=== PATIENT | male | born 1965 | race Caucasian/White ===

== ENCOUNTER 2017-08-05 09:22 | Emergency (ER) | payer OTHER ==
[2017-08-05 09:53] LABS: #Eosinphils 0.1 thou/uL (0.0-0.7); #Lymphocytes 1.1 thou/uL (1.20-3.40); #Monocytes 0.4 thou/uL (0.11-0.59); #Neutrophils 2.9 thou/uL (1.40-6.50); %Basophils 0.5 % (0.0-1.0); %Eosinophils 1.9 % (0.0-10.0); %Lymphocytes 25.2 % (21.0-51.0); %Monocytes 8.1 % (0.0-10.0); Hematocrit 41.5 % (42.0-52.0); Mean Platelet Volume 5.7 fL (7.4-10.4); Red Blood Cell (RBC) Count 4.53 mill/uL (4.70-6.10); White Blood Cell (WBC) Count 4.5 thou/uL (4.8-10.8)
[2017-08-05 10:20] LABS: ALT (SGPT) 14 U/L (8-55); AST (SGOT) 40 U/L (5-34); Alkaline Phosphatase 85 U/L (40-150); Anion Gap 16 mmol/L (10-20); BUN (Urea Nitrogen) 12 mg/dL (8.4-25.7); Bilirubin, Total 0.4 mg/dL (0.2-1.2); Calc. Creatinine Clearance 0 mL/min (70-130); Calcium 9.1 mg/dL (7.8-10.44); Carbon Dioxide 23 mmol/L (22-29); Chloride 105 mmol/L (98-107); Estimated GFR-MDRD Greater than 90; Globulin 2.3 g/dL (2.4-3.5); Protein, Total 6.6 g/dL (6.0-8.3)
[2017-08-05] MEDS ORDERED: SODIUM CHLORIDE 0.9% IVPB ONE (11:00)
[2017-08-05] MEDS ORDERED: FOSPHENYTOIN SODIUM IVPB ONE (11:00)
--- NOTE | 2017-08-05 11:38 | CT ---
HEAD CT WITHOUT CONTRAST: DATE: 08/05/17. COMPARISON: None. HISTORY: A 51-year-old male with seizures. TECHNIQUE: Serial axial CT imaging is obtained at 5 mm intervals from vertex through the skull base without cont rast. FINDINGS: Imaged paranasal sinuses and mastoid air cells are well aerated. There is no displaced calvarial fra cture. There is no intracranial hemorrhage, midline shift, mass effect, or ventricular enlargement. IMPRESSION: No intracranial hemorrhage or displaced calvarial fracture. If there is clinical concern for a seizu re focus, a followup brain MRI may be beneficial. POS: [facility]
[2017-08-05] MEDS ORDERED: Ketorolac Tromethamine 30 MG/ML VIAL ONE (11:40)
[2017-08-05] MEDS ORDERED: Acetaminophen 500 MG TAB ONE (12:49)
--- NOTE | 2017-09-04 14:38 | EKG ---
Test Reason : SEIZURE Blood Pressure : / mmHG Vent. Rate : 109 BPM Atrial Rate : 109 BPM P-R Int : 170 ms QRS Dur : 086 ms QT Int : 332 ms P-R-T Axes : 072 064 048 degrees QTc Int : 447 ms Sinus tachycardia Otherwise normal ECG Confirmed by GREY FARMER MD ([id number]), graphics editor OWEN REYES ([id number]) on 09/04/2017 2:38:08 PM Referred By: ANNA FARMER Confirmed By:GREY FARMER MD
== END 2017-08-05 13:55 | disposition home or self-care (01) ==
LOC: ERS 09:22
DX: G40.909 Epilepsy, unspecified, not intractable, without status epilepticus (principal); I10 Essential (primary) hypertension; I25.10 Atherosclerotic heart disease of native coronary artery without angina pectoris; F25.9 Schizoaffective disorder, unspecified; Z87.891 Personal history of nicotine dependence; Z79.899 Other long term (current) drug therapy
CPT/HCPCS: 36415; 70450; 80053; 80156; 80185; 85025; 93005; 94760; 96365; 96375; J1885; J7050; Q2009